=== PATIENT | male | born 1960 | race American Indian/Alaskan Native ===

== ENCOUNTER 2017-01-01 10:10 | Inpatient (IN) | payer MEDICAID, OTHER ==
[2017-01-01 10:28] VITALS: BMI 31.8
[2017-01-01] MEDS ORDERED: Metoprolol 1 mg/ml Inj IVP STA ×2 (10:41→10:42)
[2017-01-01] MEDS ORDERED: Sodium Chloride 0.9% 1,000 ML IV STA (10:44)
--- NOTE | 2017-01-01 11:01 | ED PDOC ---
HPI: Abdomen Time Seen by Provider: 01/01/17 10:32 Chief Complaint (Nursing): Abdominal Pain Chief Complaint (Provider): Abdominal pain, diffuse; vomiting, chest pain History Per: Patient History/Exam Limitations: no limitations Onset/Duration Of Symptoms: Hrs Outside of [place] travel?: No Current Symptoms Are (Timing): Still Present Context: Food Location Of Pain/Discomfort: Diffuse Quality Of Discomfort: Cramping Associated Symptoms: Nausea, Vomiting, Loss Of Appetite, Chest Pain. denies: Fever, Chills, Back Pain, Constipation, Urinary Symptoms Exacerbating Factors: None Alleviating Factors: None Last Bowel Movement: Today Additional Complaint(s): Pt reports chronic nausea and takes reglan at home. Pt states today when he woke up he felt diffuse abdominal pain. Pt states the pain radiates to the chest and feels like he had food stuck. Pt states he also was unable to take his BP medications today. He takes a BB. Past Medical History Reviewed: Historical Data, Nursing Documentation, Vital Signs Vital Signs: Last Vital Signs Temp 98.9 F 01/01/17 14:42 Pulse 87 01/01/17 14:42 Resp 18 01/01/17 14:42 BP 159/95 H 01/01/17 16:13 Pulse Ox 99 01/01/17 11:01 - Medical History PMH: Anemia, Bipolar Disorder, HTN, Hypercholesterolemia, Sleep Apnea (POSITIVE SLEEP STUDY, NO C PAP GIVEN), TIA (AUGUST 2014) Denies: Chronic Kidney Disease - Surgical History Surgical History: Cholecystectomy (2008), Endoscopy - Family History Family History: States: Unknown Family Hx - Living Arrangements Living Arrangements: With Family - Social History Current smoker - smoking cessation education provided: No Alcohol: None Drugs: Denies - Immunization History Hx Influenza Vaccination: Yes - Home Medications Home Medications: Ambulatory Orders Medication Instructions Recorded Aspirin [Aspirin EC] 81 mg PO DAILY 06/18/14 Vitamin B Complex & Vitamin C 1 tab PO DAILY 06/18/14 [Strovite] Atorvastatin [Lipitor] 80 mg PO HS 09/02/15 Pyridoxine [Vitamin B6 50 mg Tab] 50 mg PO DAILY 09/02/15 Metoclopramide [Reglan] 1 tab PO TIDAC PRN #21 tab 04/04/16 Gabapentin [Neurontin] 300 mg PO DAILY 01/01/17 Insulin Detemir [Levemir] 24 units SC HS 01/01/17 Insulin Human Regular [HumuLIN R] 8 units SC TID 01/01/17 - Allergies Allergies/Adverse Reactions: Allergies Allergy/AdvReac Type Severity Reaction Status Date / Time No Known Allergies Allergy Verified 09/05/15 04:43 Review of Systems ROS Statement: Except As Marked, All Systems Reviewed And Found Negative Constitutional: Negative for: Fever, Chills Cardiovascular: Positive for: Chest Pain. Negative for: Palpitations Gastrointestinal: Positive for: Nausea, Vomiting, Abdominal Pain Physical Exam - Reviewed Nursing Documentation Reviewed: Yes Vital Signs Reviewed: Yes - Physical Exam Appears: Positive for: Well, Non-toxic, No Acute Distress Head Exam: Positive for: ATRAUMATIC, NORMAL INSPECTION, NORMOCEPHALIC Skin: Positive for: Normal Color, Warm, DRY Eye Exam: Positive for: Normal appearance ENT: Positive for: Normal ENT Inspection Neck: Positive for: Normal, Painless ROM Cardiovascular/Chest: Positive for: Regular Rate, Rhythm Respiratory: Positive for: CNT, Normal Breath Sounds Gastrointestinal/Abdominal: Positive for: Bowel Sounds, Soft, Tenderness (Mild, diffuse ). Negative for: Normal Exam Back: Positive for: Normal Inspection Extremity: Positive for: Normal ROM Neurologic/Psych: Positive for: Alert, Oriented - Laboratory Results Result Diagrams: 01/01/17 11:30 01/01/17 11:30 - ECG O2 Sat by Pulse Oximetry: 99 Medical Decision Making Medical Decision Making: Discussed with Dr. Gore. Disposition - Clinical Impression Clinical Impression: Acute on chronic renal failure, Chest pain - Patient ED Disposition Is Patient to be Admitted: Yes - Disposition Disposition Time: 18:25 Condition: GOOD
[2017-01-01 11:56] LABS: BASO # 0.1 K/uL (0.0-0.2); BASO % 1.8 % (0.0-2.0); EOS # 0.2 K/uL (0.0-0.7); EOS % 2.2 % (0.0-4.0); HEMATOCRIT 24.9 % (35.0-51.0); LYMPH # 0.9 K/uL (1.0-4.3); LYMPH % 12.6 % (20.0-40.0); MEAN CELL VOLUME 76.4 fl (80.0-94.0); MEAN CORPUSCULAR HEMOGLOBIN 25.1 pg (27.0-31.0); MEAN CORPUSCULAR HGB CONC 32.9 g/dL (33.0-37.0); MEAN PLATELET VOLUME 7.6 fl (7.2-11.7); MONO # 0.5 K/uL (0.0-0.8); MONO % 7.3 % (0.0-10.0); NEUT # 5.6 K/uL (1.8-7.0); NEUT % 76.1 % (50.0-75.0); RED CELL DISTRIBUTION WIDTH 15.6 % (11.5-14.5); WHITE BLOOD COUNT 7.3 K/uL (4.8-10.8)
[2017-01-01 11:57] LABS: ALB/GLOB RATIO 1.1 (1.0-2.1); BILIRUBIN,TOTAL 1.1 mg/dl (0.2-1.3); CALCIUM 9.9 mg/dL (8.4-10.2); TOTAL PROTEIN 7.8 G/DL (6.3-8.2)
[2017-01-01 12:03] LABS: POTASSIUM 5.1 MMOL/L (3.6-5.0)
[2017-01-01 12:05] LABS: PARTIAL THROMBOPLASTIN TIME 29.4 Seconds (25.6-37.1)
[2017-01-01 12:08] LABS: TROPONIN I 0.037 ng/mL (0.00-0.120)
--- NOTE | 2017-01-01 12:08 | RAD ---
HISTORY: Chest pressure COMPARISON: No prior. FINDINGS: LUNGS: No active pulmonary disease. Slight elevation right hemidiaphragm possibly due to eventration. Suspect mild bilateral lower lobe atelectasis. PLEURA: No significant pleural effusion identified, no pneumothorax apparent. CARDIOVASCULAR: Heart size is upper limits of normal/ borderline enlarged. OSSEOUS STRUCTURES: No significant abnormalities. VISUALIZED UPPER ABDOMEN: Normal. OTHER FINDINGS: None. IMPRESSION: No active disease.
[2017-01-01 12:30] LABS: RBC URINE 2 /hpf (0-3); URINE BILIRUBIN NEGATIVE (NEGATIVE); URINE BLOOD NEGATIVE (NEGATIVE); URINE COLOR STRAW (YELLOW); URINE GLUCOSE (UA) >=500 mg/dL (Normal); URINE KETONE NEGATIVE (NEGATIVE); URINE LEUKOCYTE ESTERASE NEG Leu/uL (Negative); URINE PROTEIN >=500 mg/dL (NEGATIVE); URINE UROBILINOGEN 0.2-1.0 mg/dL (0.2-1.0)
[2017-01-01] MEDS ORDERED: Labetalol 5 mg/ml Inj 20ML IVP STA (12:38)
--- NOTE | 2017-01-01 16:08 | CT ---
PROCEDURE: CT chest abdomen pelvis dated 01/01/2017 HISTORY: Chest abdominal pain, hypertension COMPARISON: Though correlation made with concurrent chest radiograph obtained earlier same day TECHNIQUE: Radiation dose: Total exam DLP = 1457.68 mGy-cm. This CT exam was performed using one or more of the following dose reduction techniques: Automated exposure control, adjustment of the mA and/or kV according to patient size, and/or use of iterative reconstruction technique. FINDINGS: CT CHEST WITHOUT CONTRAST: LUNGS: Minor linear atelectasis/ scarring changes seen both lung bases, right greater than left. All There is also mild linear scarring in the left upper lobe. . There also appears to be some minor passive atelectasis both posterior lower lung zones. No obvious parenchymal masses or nodules. MEDIASTINUM: Heart size is upper limits of normal/ borderline enlarged. Questionable tiny the/trace pericardial effusion versus pericardial thickening. Ascending thoracic aorta measures approximately 3.56 cm and descending thoracic aorta measures approximately 2.47 cm. Pulmonary trunk measures approximately 3.4 cm. Central airways are midline and patent. LYMPH NODES: Multiple small to mildly enlarged mediastinal lymph nodes are present of nonspecific. Evaluation for hilar adenopathy is limited due to the lack of circulating intravenous contrast material. PLEURA: No evidence of pleural effusion or pneumothorax. BONES: Minor multilevel degenerative spondylosis of the thoracic spine. OTHER FINDINGS: None. CT ABDOMEN AND PELVIS: LIVER: Liver exhibits normal size measuring approximately 17 cm in CC dimension. No obvious hepatic mass collection or calcification. GALLBLADDER AND BILE DUCTS: Post cholecystectomy changes. PANCREAS: The pancreas is slightly atrophic and fatty replaced. No obvious pancreatic mass collection or calcification seen on this noncontrast study. SPLEEN: Spleen is upper limits of normal measuring 12 cm in AP dimension. No splenic mass collection or calcification. ADRENALS: No adrenal lesions. . KIDNEYS AND URETERS: Kidneys demonstrate relatively symmetric size. No evidence of nephrolithiasis. No obvious renal mass or collection. There is mild columnization of the proximal ureters. VASCULATURE: No evidence of abdominal aortic or iliac artery aneurysm. BOWEL: Evaluation of the bowel is limited due to the lack of oral contrast material. There is a small hiatal hernia. . Stomach is incompletely distended which presumably accounts for thick-walled appearance. Rule out gastritis. Visualized loops of small bowel exhibit normal contour and caliber. No evidence of acute mechanical small bowel obstruction. APPENDIX: Appendix of best seen on axial image number [id number]. There is a punctate CT density within the lumen of the appendix which could represent tiny at calcification. Appendix measures up to approximately 6 mm in greatest diameter. No periappendiceal inflammatory changes. Stool and air seen throughout the large bowel. There are a few scattered colonic diverticula along the sigmoid and distal descending colon. No definitive evidence of acute diverticulitis. No abnormal mural wall thickening. PERITONEUM: Unremarkable. No free fluid. No free air. Containing umbilical hernia. Small fat LYMPH NODES: Unremarkable. No enlarged lymph nodes. BLADDER: Urinary bladder is incompletely distended which may in part account for thick-walled appearance. Muscular hypertrophy may contribute. Possibility of a cystitis or other intrinsic/invasive wall lesion should be excluded. Urologic consultation may be prudent for further evaluation. REPRODUCTIVE: Prostate gland measures approximately 3.4 cm in transverse dimension. BONES: Minor multilevel degenerative spondylosis of the lumbar spine. OTHER FINDINGS: Minimal changes of bilateral gynecomastia IMPRESSION: Multiple small to mildly enlarged mediastinal lymph nodes nonspecific. Clinical correlation recommended. Minor bilateral linear scarring changes as described above. No infiltrate effusion or pneumothorax. Spleen appears upper limits of normal in size. Status post cholecystectomy. Scattered colonic diverticula without radiographic evidence of acute diverticulitis. Small hiatal hernia. Mild columnization both ureters. Wall thickening of the urinary bladder in part due to underdistention and mild probable muscular hypertrophy however cystitis or other intrinsic/invasive wall lesion should be excluded. Consider follow-up urologic consultation.
[2017-01-01] MEDS ORDERED: Insulin Regular 100 units/ml IV STA (18:49)
[2017-01-01] MEDS ORDERED: Sodium Chloride 0.45% 1,000 ML IV SCH (22:00)
[2017-01-01] MEDS: Insulin Regular 100 units/ml SC SCH (22:28)
[2017-01-01] MEDS: Insulin Detemir 100 Units/ml Inj SC SCH (22:52)
[2017-01-02] MEDS: Insulin Regular 100 units/ml SC SCH ×4 (06:15→22:53)
[2017-01-02] MEDS ORDERED: Insulin Regular 100 units/ml SC SCH (09:00)
[2017-01-02 09:22] LABS: HEMATOCRIT 28.2 % (35.0-51.0); MEAN CELL VOLUME 76.3 fl (80.0-94.0); MEAN CORPUSCULAR HEMOGLOBIN 24.8 pg (27.0-31.0); MEAN CORPUSCULAR HGB CONC 32.5 g/dL (33.0-37.0); WHITE BLOOD COUNT 7.5 K/uL (4.8-10.8)
[2017-01-02 09:46] LABS: CALCIUM 9.6 mg/dL (8.4-10.2); POTASSIUM 4.2 MMOL/L (3.6-5.0)
[2017-01-02 09:57] LABS: TROPONIN I 0.024 ng/mL (0.00-0.120)
[2017-01-02] MEDS: Multivitamin With Minerals Tab PO SCH (10:00)
[2017-01-02] MEDS: Enoxaparin 30 mg Syringe SC SCH (10:00)
--- NOTE | 2017-01-02 17:14 | HP ---
HISTORY OF PRESENT ILLNESS: The patient is a 56-year-old male who was admitted via the emergency room because of abdominal and chest pains on the day of admission. He indicated that he had vomited several times the day before and atypical chest pains radiating to the left arm. He also felt like food was stuck at the back of the throat. He has had similar episodes in the past and has been under the care of Dr. Zack Fishman and has been admitted to [facility] via the ER prior to this presentation. PAST MEDICAL HISTORY: Bipolar disorder, severe anemia, hypertension, hyperlipidemia, sleep apnea syndrome, severe gastritis with chronic nausea, diabetes mellitus, and renal failure. FAMILY HISTORY: Non-revealing. SOCIAL HISTORY: He does not smoke or drink and lives at home with his daughter and . REVIEW OF SYSTEMS: Remarkable for chronic recurrent nausea. PHYSICAL EXAMINATION: GENERAL: The patient is alert and oriented. He is obese. VITAL SIGNS: Blood pressure 159/95, pulse of 87, respiratory rate 18. He is afebrile. O2 sat 99% on room air. SKIN: Shows slight turgor. HEENT: Pupils equal, reactive to light and accommodation. JVP is flat. Mouth shows fair hygiene. LUNGS: Clear. HEART: Regular. No murmurs, rub or gallops. No chest wall tenderness. ABDOMEN: Soft with midepigastric tenderness. No organomegaly appreciated. He has normal active bowel sounds. GENITALIA: Normal. RECTAL: Deferred. EXTREMITIES: Show no edema or cyanosis. CENTRAL NERVOUS SYSTEM: Grossly intact. LABORATORY DATA: Remarkable for sodium of 137, potassium of 5.1, BUN of 40, creatinine of 4.3 increased from creatinine done on several months ago at [facility], which was 2.7. Serum glucose 240, troponin 0.037, AST 50, ALT 35. WBC 7.5, hemoglobin 9.2, platelet count 279,000. Urinalysis greater than 500 protein, greater than 500 glucose, otherwise unremarkable. PT 11.5, INR 1.1. CAT scan of abdomen and pelvis is remarkable for multiple small, mildly enlarged lymph nodes, which are nonspecific. Bilateral linear scarring, changes described. Spleen normal status post cholecystectomy. Scattered colonic diverticula. Chest x-ray, no acute cardiopulmonary pathology. EKG official report is pending. IMPRESSION: Abdominal and chest pains, this could be due to patient's history of severe gastritis, but one has to rule out acute coronary artery syndrome, renal failure acute on chronic, diabetes mellitus type 2 with hyperglycemia, poorly controlled; hypertension, poorly controlled. PLAN: Intravenous hydration. Nephrology and cardiology evaluation. We will give H2 blockers for gastritis. Monitor blood sugar closely. Further therapy will depend on findings. Zac Gore MD
--- NOTE | 2017-01-02 17:32 | CP.PCM.CON ---
History of Present Illness - History of Present Illness History of Present Illness: PT W CC OF CP AFTER MEALS. SAYS THAT FOR 4 DAYS HE HAS HAD CHEST DISCOMFORT OVER LEFT CHEST POST MEALS. LASTS 15 MIN, RESOLVES ON OWN. FEELS LIKE PRESSURE. ASSOCIATED W DYSPNEA. HE HAS HAD INCREASED ORTHOPNEA FOR SEVERAL WEEKS WELL. PT DENIES PRIOR EPISODES IN PAST. PT HAS MULTIPLE RISK FACTORS DM, HTN, DYSLIPIDEMIA, AND FAM HX OF CAD. PT STATES HE HAD A CARDIAC CATH IN PAST WHEN DIAGNOSED WITH CHF (ETIOLOGY UNKNOWN). PTS SYMPTOMS ARE NOT EXERTIONAL. UPON ADMISSION HE WAS NOTED TO HAVE WORSENING RENAL FUNCTION. CURRENTLY PT APPEARS COMFORTABLE. Review of Systems - Constitutional Constitutional: absent: As Per HPI, Anorexia, Chills, Daytime Sleepiness, Excessive Sweating, Fatigue, Fever, Frequent Falls, Headache, Increased Appetite , Lethargy, Malaise, Night Sweats, Snoring, Sleep Apnea, Weight Gain, Weight Loss, Weakness, Other - EENT Eyes: absent: As Per HPI, Blind Spots, Blurred Vision, Change in Vision, Decreased Night Vision, Diplopia, Discharge, Dry Eye, Exophthalmos, Floaters, Irritation, Itchy Eyes, Loss of Peripheral Vision, Pain, Photophobia, Requires Corrective Lenses, Sees Flashes, Spots in Vision, Tunnel Vision, Other Visual Disturbances, Loss of Vision, Other Ears: absent: As Per HPI, Decreased Hearing, Ear Discharge, Ear Pain, Tinnitus, Abnormal Hearing, Disequilibrium, Dizziness, Other Nose/Mouth/Throat: absent: As Per HPI, Epistaxis, Nasal Congestion, Nasal Discharge, Nasal Obstruction, Nasal Trauma, Nose Pain, Post Nasal Drip, Sinus Pain, Sinus Pressure, Bleeding Gums, Change in Voice, Dental Pain, Dry Mouth, Dysphagia, Halitosis, Hoarsness, Lip Swelling, Mouth Lesions, Mouth Pain, Odynophagia, Sore Throat, Throat Swelling, Tongue Swelling, Facial Pain, Neck Pain, Neck Mass, Other - Cardiovascular Cardiovascular: As Per HPI, Chest Pain, Chest Pain at Rest, Leg Edema, Orthopnea. absent: Acrocyanosis, Chest Pain with Activity, Claudication, Diaphoresis, Dyspnea, Dyspnea on Exertion, Edema, Irregular Heart Rhythm, Pain Radiating to Arm/Neck/Jaw, Leg Ulcers, Lightheadedness, Palpitations, Paroxysmal Nocturnal Dyspnea, Pedal Edema, Radiating Pain, Rapid Heart Rate, Slow Heart Rate, Syncope, Other - Respiratory Respiratory: absent: As Per HPI, Cough, Dyspnea, Hemoptysis, Dyspnea on Exertion , Wheezing, Snoring, Stridor, Pain on Inspiration, Chest Congestion, Excessive Mucous Production, Change in Mucous Color, Pain with Coughing, Other - Gastrointestinal Gastrointestinal: Abdominal Pain, Bloating. absent: As Per HPI, Belching, Change in Bowel Habits, Change in Stool Character, Coffee Ground Emesis, Constipation, Cramping, Diarrhea, Dyspepsia, Dysphagia, Early Satiety, Excessive Flatus, Fecal Incontinence, Heartburn, Hematemesis, Hematochezia, Loose Stools, Melena, Nausea, Odynophagia, Temesmus, Vomiting, Other - Genitourinary Genitourinary: absent: As Per HPI, Change in Urinary Stream, Difficulty Urinating, Dysuria, Flank Pain, Hematuria, Pyuria, Nocturia, Urinary Incontinence, Urinary Frequency, Urinary Hesitance, Urinary Urgency, Voiding Freq/Small Amts, Freq UTI, Hx Renal/Bladder Calculi, Hx /Renal Surgery, Bladder Distension, Other - Musculoskeletal Musculoskeletal: absent: As Per HPI, Abnormal Gait, Arthralgias, Atrophy, Back Pain, Deformity, Joint Swelling, Limited Range of Motion, Loss of Height, Muscle Cramps, Muscle Weakness, Myalgias, Neck Pain, Numbness, Radiating Pain into Limb, Stiffness, Tingling, Other - Integumentary Integumentary: absent: As Per HPI, Acne, Alopecia, Bleeding Lesions, Change in Hair, Change in Nails, Change in Pigmentation, Changing Lesions, Dry Skin, Erythema, Furuncle, Hirsutism, Lesions, New Lesions, Non-Healing Lesions, Photosensitivity, Pruritus, Rash, Skin Pain, Skin Ulcer, Sores, Striae, Swelling , Unusual Bruising, Wounds, Jaundice, Other - Neurological Neurological: absent: As Per HPI, Abnormal Gait, Abnormal Hearing, Abnormal Movements, Abnormal Speech, Behavioral Changes, Burning Sensations, Confusion, Convulsions, Disequilibrium, Dizziness, Numbness, Focal Weakness, Frequent Falls , Headaches, Lack of Coordination, Loss of Vision, Memory Loss, Paresthesias, Radicular Pain, Restless Legs, Sensory Deficit, Syncope, Tingling, Tremor, Vertigo, Weakness, Other Visual Disturbances, Other - Psychiatric Psychiatric: absent: As Per HPI, Abnormal Sleep Pattern, Anhedonia, Anxiety, Auditory Hallucinations, Behavioral Changes, Change in Appetite, Change in Libido, Confusion, Depression, Difficulty Concentrating, Hallucinations, Homicidal Ideation, Hopelessness, Irritability, Memory Loss, Mood Swings, Panic Attacks, Paranoia, Suicidal Ideation, Visual Hallucinations, Tactile Hallucinations, Other - Endocrine Endocrine: absent: As Per HPI, Change in Body Appearance, Change in Libido, Cold Intolorance, Deepening of Voice, Excessive Sweating, Fatigue, Flushing, Heat Intolorance, Increase in Ring/Shoe/Hat Size, Palpitations, Polydipsia, Polyphagia, Polyuria, Other - Hematologic/Lymphatic Hematologic: absent: As Per HPI, Easy Bleeding, Easy Bruising, Lymphadenopathy, Other Past Patient History - Past Medical History & Family History Past Medical History?: Yes - Past Social History Smoking Status: Never Smoked Chewing Tobacco Use: No Cigar Use: No Alcohol: None Drugs: Denies Domestic Violence: Negative - CARDIAC Hx Cardiac Disorders: Yes Hx Hypercholesterolemia: Yes Hx Hypertension: Yes - PULMONARY Hx Respiratory Disorders: Yes Hx Sleep Apnea: Yes (POSITIVE SLEEP STUDY, NO C PAP GIVEN) - NEUROLOGICAL Hx Neurological Disorder: Yes Hx Transient Ischemic Attacks (TIA): Yes (AUGUST 2014) - HEENT Hx HEENT Problems: No - RENAL Hx Chronic Kidney Disease: No - ENDOCRINE/METABOLIC Hx Endocrine Disorders: Yes Hx Diabetes Mellitus Type 1: Yes - HEMATOLOGICAL/ONCOLOGICAL Hx AIDS: No Hx Anemia: Yes Hx Blood Transfusions: No Hx Human Immunodeficiency Virus (HIV): No - INTEGUMENTARY Hx Dermatological Problems: No - MUSCULOSKELETAL/RHEUMATOLOGICAL Hx Musculoskeletal Disorders: Yes Hx Falls: Yes Hx Herniated Disk: Yes (2- CERVICAL) Hx Osteoarthritis: Yes (KNEES) - GASTROINTESTINAL Hx Gastrointestinal Disorders: Yes Other/Comment: EGD done 09/02/2015 - gastric ulcer - GENITOURINARY/GYNECOLOGICAL Hx Genitourinary Disorders: No - PSYCHIATRIC Hx Bipolar Disorder: Yes Hx Substance Use: No - SURGICAL HISTORY Hx Surgeries: Yes Hx Cholecystectomy: Yes (2008) - ANESTHESIA Hx Anesthesia: Yes Hx Anesthesia Reactions: Yes (VOMITING) Meds Allergies/Adverse Reactions: Allergies Allergy/AdvReac Type Severity Reaction Status Date / Time No Known Allergies Allergy Verified 09/05/15 04:43 - Medications Medications: Current Medications Acetaminophen (Tylenol 325mg Tab) 650 mg PO Q4 PRN PRN Reason: Headache Amlodipine Besylate (Norvasc) 5 mg PO DAILY [facility] Last Admin: 01/02/17 09:50 Dose: Not Given Aspirin (Ecotrin) 81 mg PO DAILY [facility] Last Admin: 01/02/17 09:57 Dose: 81 mg Atorvastatin Calcium (Lipitor) 80 mg PO HS [facility] Last Admin: 01/01/17 22:52 Dose: 80 mg Carvedilol (Coreg) 25 mg PO Q12 [facility] Last Admin: 01/02/17 11:11 Dose: 25 mg Clonidine HCl (Catapres-Tts2 0.2 Mg/24 Hr) 1 patch TD Q7D [facility] Enoxaparin Sodium (Lovenox) 30 mg SC DAILY [facility] PRN Reason: Protocol Last Admin: 01/02/17 10:00 Dose: 30 mg Gabapentin (Neurontin) 300 mg PO DAILY [facility] Last Admin: 01/02/17 10:00 Dose: 300 mg Insulin Detemir (Levemir) 24 units SC [facility] Last Admin: 01/01/17 22:52 Dose: 24 units Insulin Human Regular (Humulin R) 0 units SC ACCU-CHECK [facility] PRN Reason: Protocol Last Admin: 01/02/17 17:17 Dose: 5 units Metoclopramide HCl (Reglan) 10 mg PO TIDAC PRN PRN Reason: Nausea/Vomiting Multivitamins/Minerals (Therapeutic-M Tab) 1 tab PO DAILY [facility] Last Admin: 01/02/17 10:00 Dose: 1 tab Pantoprazole Sodium (Protonix Inj) 40 mg IVP DAILY [facility] Last Admin: 01/02/17 10:01 Dose: 40 mg Pyridoxine HCl (Vitamin B6 50 Mg Tab) 50 mg PO DAILY [facility] Last Admin: 01/02/17 10:00 Dose: 50 mg Zolpidem Tartrate (Ambien) 5 mg PO [facility] Last Admin: 01/01/17 22:38 Dose: 5 mg Physical Exam - Constitutional Appears: Non-toxic - Head Exam Head Exam: ATRAUMATIC, NORMAL INSPECTION, NORMOCEPHALIC - Eye Exam Eye Exam: EOMI, Normal appearance, PERRL. absent: Conjunctival injection, Nystagmus, Periorbital swelling, Periorbital tenderness, Scleral icterus Pupil Exam: NORMAL ACCOMODATION, PERRL. absent: Fixed, Irregular, Miosis, Mydriatic, Unequal - ENT Exam ENT Exam: Mucous Membranes Moist, Normal Exam. absent: Mucous Membranes Dry, Normal External Ear Exam, Normal Oropharynx, TM's Normal Bilaterally - Neck Exam Neck exam: Positive for: Normal Inspection. Negative for: Full Rom, Lymphadenopathy, Meningismus, Tenderness, Thyromegaly - Respiratory Exam Respiratory Exam: Clear to Auscultation Bilateral, NORMAL BREATHING PATTERN. absent: Accessory Muscle Use, Chest Wall Tenderness, Decreased Breath Sounds, Prolonged Expiratory Phase, Rales, Rhonchi, Wheezes, Respiratory Distress, Stridor - Cardiovascular Exam Cardiovascular Exam: REGULAR RHYTHM, +S1, +S2, Systolic Murmur. absent: Bradycardia, Tachycardia, Clicks, Diastolic murmur, Gallop, Irregular Rhythm, JVD, RRR, Rubs, +S4 - GI/Abdominal Exam GI & Abdominal Exam: Normal Bowel Sounds, Soft. absent: Bruit, Diminished Bowel Sounds, Distended, Firm, Guarding, Hernia, Hyperactive Bowel Sounds, Hypoactive Bowel Sounds, Mass, Organomegaly, Pulsatile Mass, Rebound, Rigid, Tenderness - Rectal Exam Rectal Exam: Deferred - Extremities Exam Extremities exam: Positive for: normal inspection, pedal edema. Negative for: calf tenderness, full ROM, joint swelling, normal capillary refill, tenderness, pedal pulses present - Back Exam Back exam: NORMAL INSPECTION. absent: CVA tenderness (L), CVA tenderness (R), FULL ROM, muscle spasm, paraspinal tenderness, rash noted, tenderness, vertebral tenderness - Neurological Exam Neurological exam: Alert, CN II-XII Intact, Oriented x3, Reflexes Normal - Psychiatric Exam Psychiatric exam: Normal Affect, Normal Mood - Skin Skin Exam: Dry, Intact, Normal Color, Warm Results - Vital Signs Recent Vital Signs: Last Vital Signs Temp 98.1 F 01/02/17 16:00 Pulse 84 01/02/17 16:00 Resp 18 01/02/17 16:00 BP 180/107 H 01/02/17 16:00 Pulse Ox 97 01/02/17 16:00 - Labs Result Diagrams: 01/02/17 08:30 01/02/17 08:30 Labs: Laboratory Results - last 24 hr 01/02/17 01/02/17 11:09 17:10 POC Glucose (mg/dL) 321 H 348 H Assessment & Plan (1) Dyslipidemia Status: Acute (2) Acute on chronic renal failure Status: Acute (3) Chest pain Status: Acute (4) Abdominal pain Status: Acute (5) Diabetes mellitus, insulin dependent (IDDM), uncontrolled Status: Acute (6) Hypertension Status: Chronic - Assessment and Plan (Free Text) Plan: R/O CA CHECK ECHO MONITOR LYTES AND RENAL FUNCTION WILL TITRATE MEDS FOR BP CONTROL CONSIDER DIURETIC THERAPY FOR BP AWAIT RENAL WORK UP PTS CP IS ATYPICAL, WILL CONSIDER STRESS TESTING ONCE RENAL FAILURE RESOLVES 90 MIN TOTAL CARE TIME.
--- NOTE | 2017-01-02 18:09 | CP.PCM.CON ---
History of Present Illness - History of Present Illness History of Present Illness: pt is een and examined, full consult is dictated #[id number] Past Patient History - Past Medical History & Family History Past Medical History?: Yes - Past Social History Smoking Status: Never Smoked - CARDIAC Hx Hypercholesterolemia: Yes Hx Hypertension: Yes - PULMONARY Hx Sleep Apnea: Yes (POSITIVE SLEEP STUDY, NO C PAP GIVEN) - NEUROLOGICAL Hx Transient Ischemic Attacks (TIA): Yes (AUGUST 2014) - HEENT Hx HEENT Problems: No - RENAL Hx Chronic Kidney Disease: No - ENDOCRINE/METABOLIC Hx Endocrine Disorders: Yes Hx Diabetes Mellitus Type 1: Yes - HEMATOLOGICAL/ONCOLOGICAL Hx AIDS: No Hx Anemia: Yes Hx Blood Transfusions: No Hx Human Immunodeficiency Virus (HIV): No - INTEGUMENTARY Hx Dermatological Problems: No - MUSCULOSKELETAL/RHEUMATOLOGICAL Hx Musculoskeletal Disorders: Yes Hx Falls: Yes Hx Herniated Disk: Yes (2- CERVICAL) Hx Osteoarthritis: Yes (KNEES) - GASTROINTESTINAL Hx Gastrointestinal Disorders: Yes Other/Comment: EGD done 09/02/2015 - gastric ulcer - GENITOURINARY/GYNECOLOGICAL Hx Genitourinary Disorders: No - PSYCHIATRIC Hx Bipolar Disorder: Yes Hx Substance Use: No - SURGICAL HISTORY Hx Surgeries: Yes Hx Cholecystectomy: Yes (2008) - ANESTHESIA Hx Anesthesia: Yes Hx Anesthesia Reactions: Yes (VOMITING) Meds Allergies/Adverse Reactions: Allergies Allergy/AdvReac Type Severity Reaction Status Date / Time No Known Allergies Allergy Verified 09/05/15 04:43 - Medications Medications: Current Medications Acetaminophen (Tylenol 325mg Tab) 650 mg PO Q4 PRN PRN Reason: Headache Last Admin: 01/02/17 17:33 Dose: 650 mg Amlodipine Besylate (Norvasc) 5 mg PO DAILY [facility] Last Admin: 01/02/17 09:50 Dose: Not Given Aspirin (Ecotrin) 81 mg PO DAILY [facility] Last Admin: 01/02/17 09:57 Dose: 81 mg Atorvastatin Calcium (Lipitor) 80 mg PO HS [facility] Last Admin: 01/01/17 22:52 Dose: 80 mg Carvedilol (Coreg) 25 mg PO Q12 [facility] Last Admin: 01/02/17 11:11 Dose: 25 mg Clonidine HCl (Catapres-Tts2 0.2 Mg/24 Hr) 1 patch TD Q7D [facility] Last Admin: 01/02/17 18:01 Dose: Not Given Enoxaparin Sodium (Lovenox) 30 mg SC DAILY [facility] PRN Reason: Protocol Last Admin: 01/02/17 10:00 Dose: 30 mg Gabapentin (Neurontin) 300 mg PO DAILY [facility] Last Admin: 01/02/17 10:00 Dose: 300 mg Insulin Detemir (Levemir) 24 units SC [facility] Last Admin: 01/01/17 22:52 Dose: 24 units Insulin Human Regular (Humulin R) 0 units SC ACCU-CHECK [facility] PRN Reason: Protocol Last Admin: 01/02/17 17:17 Dose: 5 units Metoclopramide HCl (Reglan) 10 mg PO TIDAC PRN PRN Reason: Nausea/Vomiting Multivitamins/Minerals (Therapeutic-M Tab) 1 tab PO DAILY [facility] Last Admin: 01/02/17 10:00 Dose: 1 tab Pantoprazole Sodium (Protonix Inj) 40 mg IVP DAILY [facility] Last Admin: 01/02/17 10:01 Dose: 40 mg Pyridoxine HCl (Vitamin B6 50 Mg Tab) 50 mg PO DAILY [facility] Last Admin: 01/02/17 10:00 Dose: 50 mg Zolpidem Tartrate (Ambien) 5 mg PO [facility] Last Admin: 01/01/17 22:38 Dose: 5 mg Results - Vital Signs Recent Vital Signs: Last Vital Signs Temp 98.1 F 01/02/17 16:00 Pulse 84 01/02/17 17:33 Resp 18 01/02/17 16:00 BP 180/107 H 01/02/17 17:33 Pulse Ox 97 01/02/17 16:00 - Labs Result Diagrams: 01/02/17 08:30 01/02/17 08:30 Labs: Laboratory Results - last 24 hr 01/02/17 01/02/17 11:09 17:10 POC Glucose (mg/dL) 321 H 348 H
[2017-01-02] MEDS: Insulin Detemir 100 Units/ml Inj SC SCH (22:54)
--- NOTE | 2017-01-03 07:04 | CON ---
RENAL CONSULTATION LOCATION: Room 406, bed 2. REQUESTING PHYSICIAN: Dr. Zac Gore. REASON FOR RENAL CONSULTATION: CKD IV, proteinuria, for further evaluation, uncontrolled hypertension. HISTORY OF PRESENT ILLNESS: Mr. Troncoso is a 56-year-old obese middle-aged, male with a past medical history significant for hypertension for more than 20 years and diabetes for about 16-17 years and diabetic retinopathy, status post laser treatment to the left eye, and nephrotic-range proteinuria, multiple admissions to the [facility] in the last 3-4 months with accelerated hypertension, hyperglycemia, nausea, and vomiting. The last admission was on 12/23/2016 and discharged home on 12/17/2016 from [facility], and now, the patient was admitted through the emergency room with chief complaints of feeling nausea, vomiting, unable to hold his blood pressure medications, and also headache and chest pain on admission. Per the patient, his symptoms did not improve [facility]. The patient denies any abdominal pain and denies any diarrhea, denies any fever or cough, denies any shortness of breath. The patient does complain of swelling in both legs for the last few days. The patient is noncompliant with medications. PAST MEDICAL HISTORY: Signification for hypertension for more than 20 years and diabetes for 16-17 years, diabetic retinopathy and is status post laser treatment, CKD IV, proteinuria, hyperlipidemia, and questionable diabetic gastroparesis. PAST SURGICAL HISTORY: Status post laser treatment for the left eye. ALLERGIES: NO KNOWN DRUG ALLERGIES. MEDICATIONS: [facility] are Seroquel 50 mg p.o. at bedtime, amlodipine 10 mg daily, aspirin 81 mg daily, Calcitrol 0.25 mcg one capsule p.o. daily, Coreg 25 mg p.o. q.12 hours, Thorazine 25 mg 3 times a day, cilostazol 100 mg 2 times a day, Colace with Senna 50 mg and 8.6 oral tablet 2 tablets 2 times a day as needed, ferrous sulfate 325 mg b.i.d., gabapentin 300 mg 1 capsule t.i.d., hydralazine 100 mg p.o. q.12 hours, hydrochlorothiazide 12.5 mg daily, insulin Novolog 8 units 3 times a day before meals, Levemir 26 units subcutaneously at bedtime and also 24 units subcutaneously daily, Reglan 10 mg 3 times a day, multivitamin 1 capsule p.o. daily, and Protonix 40 mg daily. His medications in the hospital include Ambien 5 mg at bedtime, clonidine 0.2 mg patch daily, Coreg 25 mg p.o. q.12 hours, aspirin 81 mg daily, Accu-Chek for coverage and Levemir 25 units subcutaneously at bedtime, Lipitor 80 mg p.o. at bedtime, Lovenox 30 mg subcutaneously daily, gabapentin 300 mg p.o. daily, amlodipine 5 mg p.o. daily, Protonix 40 mg daily, Reglan 10 mg t.i.d., multivitamin, acetaminophen, and B6 pyridoxine 50 mg p.o. daily. SOCIAL HISTORY: He denies any smoking, alcohol, or drugs. PERSONAL HISTORY: He is and he has 2 children. FAMILY HISTORY: Not significant. REVIEW OF SYSTEMS: Significant for headache, chest pain, bilateral leg swelling, nausea, vomiting, and unable to hold any p.o. since he was discharged from the [facility] on 12/27/2016. PHYSICAL EXAMINATION: As follows: GENERAL: Mr. Troncoso is a 56-year-old middle-aged patient, well built, well nourished, not in acute distress. VITAL SIGNS: Blood pressure 180/107, pulse 84, respirations 18, temperature 98.1, height 5 feet 9 inches, and weight is 216 pounds. HEENT: Pupils are normal and reactive to light and accommodation. Conjunctivae pink. Sclerae anicteric. Tongue is moist. Trachea is midline. LUNGS: Symmetric on both sides. Bilateral breath sounds present and clear on auscultation. CARDIOVASCULAR: [place] at the fifth intercostal space, midclavicular line. S1 and S2 audible. No murmur, no gallop. ABDOMEN: Normal in appearance, soft and tympanic. No guarding. No rigidity. No hepatosplenomegaly. [employer]: The patient is alert, awake, and oriented x3. Nonfocal neuro examination. Cranial nerves II through XII grossly intact. Sensory and motor system are within normal limits. EXTREMITIES: No cyanosis. No clubbing. The patient has 1+ edema in both lower extremities. LABORATORY DATA: His current laboratory data includes as follows: As of 01/02/2017, WBC is 7.5, hemoglobin 9.2, hematocrit is 28.2, platelets 279. Sodium 138, potassium 4.2, chloride 103, CO2 of 26, BUN 35, creatinine is 4, glucose is 321, calcium 9.6. Troponin 0.024. Triglycerides 341, cholesterol 356, LDL is 139, HDL is 48. His urinalysis as of 01/01/2017 is straw color and clear, pH 7, specific gravity of 1.008, protein more than 500, glucose more than 500, ketones negative, blood negative, nitrites negative, bilirubin negative, urobilinogen 0.2 to 1.0, leukocyte esterase is negative, rbc's 2. Chest x-ray as of 01/01/2017, no active disease. CT of the abdomen and pelvis, impression: Multiple small to mildly enlarged mediastinal lymph nodes, nonspecific, clinical correlation is recommended. Minor bilateral linear scarring changes and no infiltrative effusion or pneumothorax. Spleen appears upper limit of the normal size, status post cholecystectomy, scattered chronic diverticula without radiographic evidence of acute diverticulitis, small hiatal hernia, mild columnization of both ureters, wall thickening of the urinary bladder or due to under-distention and mild probable muscular hypertrophy; however, cystitis or other intrinsic or invasive wall lesions should be excluded and consider followup urologic consultation. IMPRESSION: In summary, Mr. Troncoso is a 56-year-old middle-aged male with a history of longstanding hypertension, diabetes, nephrotic range proteinuria, chronic kidney disease with baseline creatinine of about 4-4.5, diabetic retinopathy, status post laser treatment and also diabetic gastroparesis, who [facility], admitted with again nausea, vomiting, and uncontrolled hypertension. 1. Chronic kidney disease stage IV, mostly likely secondary to diabetic nephropathy. The patient had a complete workup in the [facility] in the past. All the serological workup was negative. 2. Uncontrolled hypertension, most likely secondary to noncompliance with medications. 3. Proteinuria secondary to diabetic nephropathy. 4. Diabetic gastroparesis. PLAN: Continue his current medications. Clonidine 1 patch TTS-2 may not be a good choice due to noncompliance with the medications. Continue Coreg 25 mg p.o. q.12 hours and I will increase the Norvasc to 10 mg daily and also will add Lasix 40 mg p.o. b.i.d. and titrate it as needed. Also, we will check PTH intact level and continue calcitriol and multivitamins. Check CBC, BMP, calcium, phosphorus, and PTH intact level in the a.m. We will follow with you. Thank you for allowing me to participate in your patient's care. Overall prognosis is guarded. Case discussed with Dr. Gore this morning. Savanna Cleveland MD
[2017-01-03 07:33] LABS: BLOOD UREA NITROGEN 35 mg/dl (9-20); CALCIUM 9.2 mg/dL (8.4-10.2); CARBON DIOXIDE 28 mmol/L (22-30); CHLORIDE 101 mmol/L (98-107); GFR AFRICAN-AMERICAN 18; GLUCOSE,RANDOM 231 mg/dL (75-110); PHOSPHOROUS 3.7 mg/dl (2.5-4.5); POTASSIUM 4.6 MMOL/L (3.6-5.0); SODIUM 135 mmol/l (132-148)
[2017-01-03] MEDS: Insulin Regular 100 units/ml SC SCH ×4 (07:35→22:00)
--- NOTE | 2017-01-03 10:19 | CP.PCM.PN ---
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-PT HAS BEEN ADMITTED SEVERAL TIMES AT [facility] FOR HYPERTENSIVE CRISIS AND NON-COMPLIANCE TO MEDS--BP HAS ALWAYS BEEN DIFFICULT TO CONTROL AND CREATININE HAS ALWAYS BEEN IN THE 4'S Objective - Vital Signs/Intake and Output Vital Signs (last 24 hours): Temp Pulse Resp BP Pulse Ox 98.5 F 71 18 166/95 H 99 01/03/17 08:00 01/03/17 08:00 01/03/17 08:00 01/03/17 08:00 01/03/17 08:00 - Medications Medications: Current Medications Acetaminophen (Tylenol 325mg Tab) 650 mg PO Q4 PRN PRN Reason: Headache Last Admin: 01/02/17 17:33 Dose: 650 mg Amlodipine Besylate (Norvasc) 10 mg PO DAILY [facility] Aspirin (Ecotrin) 81 mg PO DAILY [facility] Last Admin: 01/02/17 09:57 Dose: 81 mg Atorvastatin Calcium (Lipitor) 80 mg PO HS [facility] Last Admin: 01/02/17 21:47 Dose: 80 mg Carvedilol (Coreg) 25 mg PO Q12 [facility] Last Admin: 01/02/17 21:45 Dose: 25 mg Clonidine HCl (Catapres-Tts2 0.2 Mg/24 Hr) 1 patch TD Q7D [facility] Last Admin: 01/02/17 18:01 Dose: Not Given Enoxaparin Sodium (Lovenox) 30 mg SC DAILY [facility] PRN Reason: Protocol Last Admin: 01/02/17 10:00 Dose: 30 mg Furosemide (Lasix) 40 mg PO Q12 [facility] Last Admin: 01/02/17 21:47 Dose: 40 mg Gabapentin (Neurontin) 300 mg PO DAILY [facility] Last Admin: 01/02/17 10:00 Dose: 300 mg Insulin Detemir (Levemir) 24 units SC HS [facility] Last Admin: 01/02/17 22:54 Dose: 24 units Insulin Human Regular (Humulin R) 0 units SC ACCU-CHECK [facility] PRN Reason: Protocol Last Admin: 01/03/17 07:35 Dose: 3 units Losartan Potassium (Cozaar) 25 mg PO DAILY [facility] Metoclopramide HCl (Reglan) 10 mg PO TIDAC PRN PRN Reason: Nausea/Vomiting Multivitamins/Minerals (Therapeutic-M Tab) 1 tab PO DAILY [facility] Last Admin: 01/02/17 10:00 Dose: 1 tab Pantoprazole Sodium (Protonix Inj) 40 mg IVP DAILY [facility] Last Admin: 01/02/17 10:01 Dose: 40 mg Pyridoxine HCl (Vitamin B6 50 Mg Tab) 50 mg PO DAILY [facility] Last Admin: 01/02/17 10:00 Dose: 50 mg Zolpidem Tartrate (Ambien) 5 mg PO HS [facility] Last Admin: 01/02/17 22:53 Dose: 5 mg - Labs Labs: 01/03/17 06:00 PT 11.5 Seconds (9.8-13.1) 01/01/17 11:30 INR 1.1 (0.9-1.2) 01/01/17 11:30 APTT 29.4 Seconds (25.6-37.1) 01/01/17 11:30 - Constitutional Appears: Chronically Ill - Head Exam Head Exam: ATRAUMATIC, NORMAL INSPECTION, NORMOCEPHALIC - Eye Exam Eye Exam: EOMI, Normal appearance, PERRL Pupil Exam: NORMAL ACCOMODATION, PERRL - ENT Exam ENT Exam: Mucous Membranes Moist, Normal Exam - Neck Exam Neck Exam: Full ROM, Normal Inspection. absent: Lymphadenopathy - Respiratory Exam Respiratory Exam: Clear to Ausculation Bilateral, NORMAL BREATHING PATTERN - Cardiovascular Exam Cardiovascular Exam: REGULAR RHYTHM, +S1, +S2. absent: Murmur - GI/Abdominal Exam GI & Abdominal Exam: Soft, Normal Bowel Sounds. absent: Tenderness - Rectal Exam Rectal Exam: NORMAL INSPECTION - Extremities Exam Extremities Exam: Full ROM, Normal Capillary Refill, Normal Inspection. absent : Joint Swelling, Pedal Edema - Back Exam Back Exam: NORMAL INSPECTION - Neurological Exam Neurological Exam: Alert, Awake, CN II-XII Intact, Normal Gait, Oriented x3 - Psychiatric Exam Psychiatric exam: Normal Affect, Normal Mood - Skin Skin Exam: Dry, Intact, Normal Color, Warm Assessment and Plan - Assessment and Plan (Free Text) Assessment: CHEST PAIN UNCONTROLLED HTN CHRONIC RENAL FAILURE NON-COMPLIANCE DM WITH HYPERGLYCEMIA Plan: CONTINUE APPROPRIATE BP MONITORING AND NEPHROLOGY/CARDIAC WORKUP
[2017-01-03] MEDS: Enoxaparin 30 mg Syringe SC SCH (10:43)
[2017-01-03] MEDS: Multivitamin With Minerals Tab PO SCH (10:44)
--- NOTE | 2017-01-03 13:16 | CP.PCM.PN ---
Subjective - Date & Time of Evaluation Date of Evaluation: 01/03/17 Time of Evaluation: 13:15 - Subjective Subjective: pt is seen and examined, follow up consult is dictated #[id number] Objective - Vital Signs/Intake and Output Vital Signs (last 24 hours): Temp Pulse Resp BP Pulse Ox 99.1 F 83 18 158/71 H 98 01/03/17 13:00 01/03/17 13:01 01/03/17 13:00 01/03/17 13:01 01/03/17 13:00 - Medications Medications: Current Medications Acetaminophen (Tylenol 325mg Tab) 650 mg PO Q4 PRN PRN Reason: Headache Last Admin: 01/02/17 17:33 Dose: 650 mg Amlodipine Besylate (Norvasc) 10 mg PO DAILY [facility] Last Admin: 01/03/17 13:01 Dose: 10 mg Aspirin (Ecotrin) 81 mg PO DAILY [facility] Last Admin: 01/03/17 10:27 Dose: 81 mg Atorvastatin Calcium (Lipitor) 80 mg PO HS [facility] Last Admin: 01/02/17 21:47 Dose: 80 mg Carvedilol (Coreg) 25 mg PO Q12 [facility] Last Admin: 01/03/17 10:27 Dose: 25 mg Clonidine HCl (Catapres-Tts2 0.2 Mg/24 Hr) 1 patch TD Q7D [facility] Last Admin: 01/02/17 18:01 Dose: Not Given Enoxaparin Sodium (Lovenox) 30 mg SC DAILY [facility] PRN Reason: Protocol Last Admin: 01/03/17 10:43 Dose: 30 mg Furosemide (Lasix) 40 mg PO Q12 [facility] Last Admin: 01/03/17 10:27 Dose: 40 mg Gabapentin (Neurontin) 300 mg PO DAILY [facility] Last Admin: 01/03/17 10:43 Dose: 300 mg Insulin Detemir (Levemir) 24 units SC HS [facility] Last Admin: 01/02/17 22:54 Dose: 24 units Insulin Human Regular (Humulin R) 0 units SC ACCU-CHECK [facility] PRN Reason: Protocol Last Admin: 01/03/17 13:02 Dose: 4 units Losartan Potassium (Cozaar) 25 mg PO DAILY [facility] Last Admin: 01/03/17 10:28 Dose: 25 mg Metoclopramide HCl (Reglan) 10 mg PO TIDAC PRN PRN Reason: Nausea/Vomiting Multivitamins/Minerals (Therapeutic-M Tab) 1 tab PO DAILY [facility] Last Admin: 01/03/17 10:44 Dose: 1 tab Pantoprazole Sodium (Protonix Inj) 40 mg IVP DAILY [facility] Last Admin: 01/03/17 10:44 Dose: 40 mg Pyridoxine HCl (Vitamin B6 50 Mg Tab) 50 mg PO DAILY [facility] Last Admin: 01/03/17 10:45 Dose: 50 mg Zolpidem Tartrate (Ambien) 5 mg PO HS [facility] Last Admin: 01/02/17 22:53 Dose: 5 mg - Labs Labs: 01/03/17 06:00 PT 11.5 Seconds (9.8-13.1) 01/01/17 11:30 INR 1.1 (0.9-1.2) 01/01/17 11:30 APTT 29.4 Seconds (25.6-37.1) 01/01/17 11:30
[2017-01-03] MEDS: Insulin Detemir 100 Units/ml Inj SC SCH (21:33)
--- NOTE | 2017-01-03 21:53 | CP.PCM.PN ---
Subjective - Date & Time of Evaluation Date of Evaluation: 01/03/17 Time of Evaluation: 16:45 - Subjective Subjective: no cp or sob today Objective - Vital Signs/Intake and Output Vital Signs (last 24 hours): Temp Pulse Resp BP Pulse Ox 98.8 F 83 20 142/87 98 01/03/17 18:58 01/03/17 21:32 01/03/17 18:58 01/03/17 21:32 01/03/17 18:58 Intake and Output: 01/03/17 01/04/17 18:59 06:59 Intake Total 1500 Output Total 2000 Balance -500 - Medications Medications: Current Medications Acetaminophen (Tylenol 325mg Tab) 650 mg PO Q4 PRN PRN Reason: Headache Last Admin: 01/02/17 17:33 Dose: 650 mg Amlodipine Besylate (Norvasc) 10 mg PO DAILY [facility] Last Admin: 01/03/17 13:01 Dose: 10 mg Aspirin (Ecotrin) 81 mg PO DAILY [facility] Last Admin: 01/03/17 10:27 Dose: 81 mg Atorvastatin Calcium (Lipitor) 80 mg PO HS [facility] Last Admin: 01/03/17 21:32 Dose: 80 mg Carvedilol (Coreg) 25 mg PO Q12 [facility] Last Admin: 01/03/17 21:32 Dose: 25 mg Clonidine HCl (Catapres) 0.2 mg PO BID [facility] Enoxaparin Sodium (Lovenox) 30 mg SC DAILY [facility] PRN Reason: Protocol Last Admin: 01/03/17 10:43 Dose: 30 mg Furosemide (Lasix) 40 mg PO Q12 [facility] Last Admin: 01/03/17 21:32 Dose: 40 mg Gabapentin (Neurontin) 300 mg PO DAILY [facility] Last Admin: 01/03/17 10:43 Dose: 300 mg Hydralazine HCl (Apresoline) 100 mg PO Q12 [facility] Insulin Detemir (Levemir) 24 units SC HS [facility] Last Admin: 01/03/17 21:33 Dose: 24 units Insulin Human Regular (Humulin R) 0 units SC ACCU-CHECK [facility] PRN Reason: Protocol Last Admin: 01/03/17 17:15 Dose: 4 units Losartan Potassium (Cozaar) 25 mg PO DAILY [facility] Last Admin: 01/03/17 10:28 Dose: 25 mg Metoclopramide HCl (Reglan) 10 mg PO TIDAC PRN PRN Reason: Nausea/Vomiting Multivitamins/Minerals (Therapeutic-M Tab) 1 tab PO DAILY [facility] Last Admin: 01/03/17 10:44 Dose: 1 tab Pantoprazole Sodium (Protonix Inj) 40 mg IVP DAILY [facility] Last Admin: 01/03/17 10:44 Dose: 40 mg Pyridoxine HCl (Vitamin B6 50 Mg Tab) 50 mg PO DAILY [facility] Last Admin: 01/03/17 10:45 Dose: 50 mg Zolpidem Tartrate (Ambien) 5 mg PO HS [facility] Last Admin: 01/03/17 21:34 Dose: 5 mg - Labs Labs: 01/03/17 06:00 PT 11.5 Seconds (9.8-13.1) 01/01/17 11:30 INR 1.1 (0.9-1.2) 01/01/17 11:30 APTT 29.4 Seconds (25.6-37.1) 01/01/17 11:30 - Constitutional Appears: Well - Head Exam Head Exam: ATRAUMATIC, NORMAL INSPECTION, NORMOCEPHALIC - Eye Exam Eye Exam: EOMI, Normal appearance, PERRL. absent: Conjunctival injection, Nystagmus, Periorbital swelling, Periorbital tenderness, Scleral icterus Pupil Exam: NORMAL ACCOMODATION, PERRL - ENT Exam ENT Exam: Mucous Membranes Moist, Normal Exam. absent: Mucous Membranes Dry, Normal External Ear Exam, Normal Oropharynx, TM's Normal Bilaterally - Neck Exam Neck Exam: Full ROM, Normal Inspection. absent: Lymphadenopathy, Meningismus, Tenderness, Thyromegaly - Respiratory Exam Respiratory Exam: Clear to Ausculation Bilateral, NORMAL BREATHING PATTERN. absent: Accessory Muscle Use, Chest Wall Tenderness, Decreased Breath Sounds, Prolonged Expiratory Phase, Rales, Rhonchi, Wheezes, Respiratory Distress, Stridor - Cardiovascular Exam Cardiovascular Exam: REGULAR RHYTHM, +S1, +S2, Murmur. absent: Bradycardia, Tachycardia, Clicks, Diastolic murmur, Gallop, Irregular Rhythm, JVD, RRR, Rubs , +S4 - GI/Abdominal Exam GI & Abdominal Exam: Soft, Normal Bowel Sounds - Rectal Exam Rectal Exam: Deferred - Extremities Exam Extremities Exam: Full ROM, Normal Capillary Refill, Normal Inspection, Pedal Edema. absent: Calf Tenderness, Joint Swelling, Tenderness - Back Exam Back Exam: NORMAL INSPECTION. absent: CVA tenderness (L), CVA tenderness (R), Full ROM, muscle spasm, paraspinal tenderness, rash noted, tenderness, vertebral tenderness - Neurological Exam Neurological Exam: Alert, Awake, CN II-XII Intact, Normal Gait, Oriented x3. absent: Abnormal Gait, Altered, Motor Sensory Deficit, Reflexes Normal - Psychiatric Exam Psychiatric exam: Normal Affect, Normal Mood. absent: Agitated, Anxious, Depressed, Flat Affect, Homicidal Ideation, Manic, Suicidal Ideation - Skin Skin Exam: Dry, Intact, Normal Color, Warm. absent: Abrasion, Cyanosis, Diaphoretic, Erythema, Mottled, Pallor, Pallor, Petechiae, Rash, Urticaria, Vesicles Assessment and Plan (1) Dyslipidemia Status: Acute (2) Acute on chronic renal failure Status: Acute (3) Chest pain Status: Acute (4) Abdominal pain Status: Acute (5) Diabetes mellitus, insulin dependent (IDDM), uncontrolled Status: Acute (6) Hypertension Status: Chronic - Assessment and Plan (Free Text) Plan: pts cp symptoms are atypical. will hold off on stress testing. Pt's cr elevated, thus cath would be high risk. Would only pursue st and cath if pts symptoms are typical of cad. bp remains elevated. will change to hydralazine 100mg q12 and clonidine 0.2mg po bid. 60 min total care time.
--- NOTE | 2017-01-04 02:11 | PN ---
FOLLOWUP RENAL CONSULTATION LOCATION: Room #406, bed #2. REQUESTING PHYSICIAN: Zac Gore MD REASON FOR FOLLOWUP: Chronic CKD IV, proteinuria and uncontrolled hypertension. HISTORY OF PRESENT ILLNESS: Mr. Troncoso is 56 years old middle-aged, obese, male with the past medical history significant for longstanding hypertension, diabetes, secondary hyperparathyroidism, CKD IV, diabetic retinopathy status post laser treatment for the left eye and gastroparesis, diabetic was admitted with nausea, vomiting and unable to hold any medications and with chest pain and uncontrolled hypertension. The patient is feeling better today not in acute distress, no chest pain, no palpitation, no fever, no cough, no abdominal pain, no nausea, no vomiting or diarrhea. PHYSICAL EXAMINATION: VITAL SIGNS: As follows: Blood pressure 163/95, pulse 87, respirations 18, temperature 99.1, saturation 98%, height 5 feet 9 inches, and weight is 216 pounds. GENERAL: Mr. Troncoso is a 56 years old male, moderately built, moderately nourished, not in acute distress. HEENT: Pupils are normal and reactive to light and accommodation. Conjunctivae pink. Sclerae anicteric. Tongue is moist. Trachea is midline. LUNGS: Symmetry on both sides. Bilateral breath sounds present and clear on auscultation. CARDIOVASCULAR: [place] at the fifth intercostal space, midclavicular line. S1 and S2 audible. No murmur or gallop. ABDOMEN: Normal in appearance, soft and tympanic. No guarding. No rigidity. No hepatosplenomegaly. HAND [employer]ER [employer]IPPER: The patient is alert, awake and oriented x3. Nonfocal neuro examination. Cranial nerves II through XII grossly intact. Sensory and motor system is within normal limits. EXTREMITIES: No cyanosis. No clubbing. The patient has 1+ edema in both lower extremities. MEDICATIONS: His current medications include as follows: Ambien 5 mg at bedtime, hydralazine 100 mg p.o. q. 12 hours, clonidine 0.2 mg p.o. b.i.d., Coreg 25 mg p.o. q. 12 hours, Losartan 25 mg p.o. daily, Ecotrin 81 mg daily, regular insulin for coverage, Lasix 40 mg p.o. q. 12 hours, Levemir 24 units subcutaneous at bedtime, Lipitor 80 mg p.o. at bedtime, Lovenox 30 mg subcutaneous daily, gabapentin 300 mg p.o. daily, amlodipine 10 mg daily, Protonix 40 mg daily, Reglan 10 mg p.o. t.i.d., multivitamin 1 tablet daily, acetaminophen 650 mg p.o. q. 4 hours p.r.n. and pyridoxine 50 mg p.o. daily. LABORATORY DATA: Include as follows: As of 01/03/2017; sodium 135, potassium 4.6, chloride 101, CO2 of 28, BUN 35, creatinine 4.1, glucose 231, calcium 9.2, phosphorus 3.7, C3 is 145 and C4 is 48. Hepatitis B surface antigen is negative. Surface antibody is negative. Hepatitis C antibody is negative. In summary, Mr. Troncoso is a 56 years old middle-aged, obese, male with history of longstanding hypertension, diabetes, diabetic retinopathy, proteinuria, diabetic gastroparesis and psych disorder, now was admitted with nausea, vomiting and chest discomfort and unable to hold any blood pressure medications and high blood pressure and proteinuria, increased BUN and creatinine. 1. Chronic kidney disease stage IV, mostly likely secondary to diabetic nephropathy. Doubt underlying chronic GN, but cannot be ruled out. 2. Hypertension. Blood pressure is improving. Continue his current medications hydralazine, clonidine, Norvasc, Coreg and Cozaar and follow BMP in a.m. Monitor for the potassium. 3. Uncontrolled diabetes. Check hemoglobin A1c. 4. Hyperlipidemia. Continue Lipitor 80 mg p.o. at bedtime. Check 24-hour urine for protein, creatinine and creatinine clearance. We will follow with you. Thank you for allowing me to participate in your patient's care. Discussed with nurse practitioner in rounds regarding the patient's medications and the plan. Savanna Cleveland MD
[2017-01-04 08:34] VITALS: BP 144/80; PULSE 79; RESP 20; TEMP 98.1; O2SAT 99
--- NOTE | 2017-01-04 09:04 | CP.PCM.DIS ---
Provider - Provider Date of Admission: 01/02/17 10:03 Attending physician: Zac Gore MD Time Spent in preparation of Discharge (in minutes): 35 Diagnosis - Discharge Diagnosis (1) Acute on chronic renal failure Status: Acute (2) Chest pain Status: Acute (3) Dyslipidemia Status: Acute (4) Diabetes mellitus, insulin dependent (IDDM), uncontrolled Status: Acute (5) Gastroparesis due to DM Status: Acute (6) Hyperglycemia Status: Acute (7) Intractable vomiting Status: Acute (8) Renal insufficiency Status: Acute (9) Uncontrolled diabetes mellitus with chronic kidney disease, without long- term current use of insulin Status: Acute (10) Anemia Status: Chronic (11) Hypertension Status: Chronic Hospital Course - Lab Results Lab Results: Most Recent Lab Values WBC 7.5 K/uL (4.8-10.8) 01/02/17 08:30 RBC 3.70 Mil/uL (4.40-5.90) L 01/02/17 08:30 Hgb 9.2 g/dL (12.0-18.0) L 01/02/17 08:30 Hct 28.2 % (35.0-51.0) L 01/02/17 08:30 MCV 76.3 fl (80.0-94.0) L 01/02/17 08:30 MCH 24.8 pg (27.0-31.0) L 01/02/17 08:30 MCHC 32.5 g/dL (33.0-37.0) L 01/02/17 08:30 RDW 16.0 % (11.5-14.5) H 01/02/17 08:30 Plt Count 279 K/uL (130-400) 01/02/17 08:30 MPV 7.6 fl (7.2-11.7) 01/01/17 11:30 Neut % (Auto) 76.1 % (50.0-75.0) H 01/01/17 11:30 Lymph % (Auto) 12.6 % (20.0-40.0) L 01/01/17 11:30 [place] % (Auto) 7.3 % (0.0-10.0) 01/01/17 11:30 Eos % (Auto) 2.2 % (0.0-4.0) 01/01/17 11:30 Baso % (Auto) 1.8 % (0.0-2.0) 01/01/17 11:30 Neut # 5.6 K/uL (1.8-7.0) 01/01/17 11:30 Lymph # 0.9 K/uL (1.0-4.3) L 01/01/17 11:30 [place] # 0.5 K/uL (0.0-0.8) 01/01/17 11:30 Eos # 0.2 K/uL (0.0-0.7) 01/01/17 11:30 Baso # 0.1 K/uL (0.0-0.2) 01/01/17 11:30 PT 11.5 Seconds (9.8-13.1) 01/01/17 11:30 INR 1.1 (0.9-1.2) 01/01/17 11:30 APTT 29.4 Seconds (25.6-37.1) 01/01/17 11:30 Sodium 135 mmol/l (132-148) 01/03/17 06:00 Potassium 4.6 MMOL/L (3.6-5.0) 01/03/17 06:00 Chloride 101 mmol/L (98-107) 01/03/17 06:00 Carbon Dioxide 28 mmol/L (22-30) 01/03/17 06:00 Anion Gap 11 (10-20) 01/03/17 06:00 BUN 35 mg/dl (9-20) H 01/03/17 06:00 Creatinine 4.1 mg/dL (0.8-1.5) H 01/03/17 23:15 Est GFR ( Amer) 18 01/03/17 06:00 Est GFR (Non-Af Amer) 15 01/03/17 06:00 POC Glucose (mg/dL) 175 mg/dL (65-110) H 01/04/17 05:16 Random Glucose 231 mg/dL (75-110) H 01/03/17 06:00 Calcium 9.2 mg/dL (8.4-10.2) 01/03/17 06:00 Phosphorus 3.7 mg/dl (2.5-4.5) 01/03/17 06:00 Total Bilirubin 1.1 mg/dl (0.2-1.3) 01/01/17 11:30 AST 50 U/L (17-59) 01/01/17 11:30 ALT 35 U/L (21-72) 01/01/17 11:30 Alkaline Phosphatase 84 U/L (38-126) 01/01/17 11:30 Troponin I 0.0240 ng/mL (0.00-0.120) 01/02/17 08:30 Total Protein 7.8 G/DL (6.3-8.2) 01/01/17 11:30 Total Protein (PEP) 6.0 g/dL (6.1-8.1) L 01/03/17 06:00 Albumin 4.0 g/dL (3.5-5.0) 01/01/17 11:30 Globulin 3.8 gm/dL (2.2-3.9) 01/01/17 11:30 Albumin/Globulin Ratio 1.1 (1.0-2.1) 01/01/17 11:30 Triglycerides 341 mg/DL (0-149) H 01/02/17 08:30 Cholesterol 356 mg/dL (0-199) H 01/02/17 08:30 LDL Cholesterol Direct 139 mg/dL (0-129) H 01/02/17 08:30 HDL Cholesterol 48 MG/DL (30-70) 01/02/17 08:30 Urine Color Straw (YELLOW) 01/01/17 12:20 Urine Clarity Clear (Clear) 01/01/17 12:20 Urine pH 7.0 (5.0-8.0) 01/01/17 12:20 Ur Specific [place] 1.008 (1.003-1.030) 01/01/17 12:20 Urine Protein >=500 mg/dL (NEGATIVE) 01/01/17 12:20 Urine Glucose (UA) >=500 mg/dL (Normal) 01/01/17 12:20 Urine Ketones Negative mg/dL (NEGATIVE) 01/01/17 12:20 Urine Blood Negative (NEGATIVE) 01/01/17 12:20 Urine Nitrate Negative (NEGATIVE) 01/01/17 12:20 Urine Bilirubin Negative (NEGATIVE) 01/01/17 12:20 Urine Urobilinogen 0.2-1.0 mg/dL (0.2-1.0) 01/01/17 12:20 Ur Leukocyte Esterase Neg [place]/uL (Negative) 01/01/17 12:20 Urine RBC (Auto) 2 /hpf (0-3) 01/01/17 12:20 Urine Collection Time 24 HRS 01/03/17 23:15 Urine Total Volume 2800 mL 01/03/17 23:15 Creatinine Clearance 20.0 mL/min (107-139) L 01/03/17 23:15 Ur Protein 24 Hr Calc 5208.0 mg/24hr (42-225) H 01/03/17 23:15 Complement C3 145.0 mg/dL (88.0-165.0) 01/03/17 06:00 Complement C4 48.0 mg/dL (14.0-44.0) H 01/03/17 06:00 Hep Bs Antigen Negative (NEGATIVE) 01/03/17 06:00 Hep Bs Antibody Negative (NEGATIVE) 01/03/17 06:00 Hepatitis C Antibody Negative (NEGATIVE) 01/03/17 06:00 - Hospital Course Hospital Course: CLINICALLY IMPROVED CHEST PAIN FREE LABS REVIEWED--STABLE Discharge Exam - Head Exam Head Exam: ATRAUMATIC, NORMAL INSPECTION, NORMOCEPHALIC - Eye Exam Eye Exam: EOMI, Normal appearance, PERRL Pupil Exam: NORMAL ACCOMODATION, PERRL - GI/Abdominal Exam GI & Abdominal Exam: Normal Bowel Sounds - Rectal Exam Rectal Exam: NORMAL INSPECTION - Neurological Exam Neurological exam: Alert, CN II-XII Intact, Normal Gait, Oriented x3, Reflexes Normal - Psychiatric Exam Psychiatric exam: Normal Affect, Normal Mood - Skin Skin Exam: Dry, Intact, Normal Color, Warm Discharge Plan - Follow Up Plan Condition: GOOD Disposition: HOME/ ROUTINE Patient education suggested?: Yes Additional Instructions: DISCHARGE TODAY FOLLOW UP WITH DR ESQUIVEL AND CHIEF DEPUTY [facility]ER[facility]
[2017-01-04] MEDS: Multivitamin With Minerals Tab PO SCH (09:20)
[2017-01-04] MEDS: Insulin Regular 100 units/ml SC SCH (09:21)
[2017-01-04] MEDS: Enoxaparin 30 mg Syringe SC SCH (09:21)
[2017-01-04 20:56] LABS: BETA 1 GLOBULIN 0.4 g/dL (0.4-0.6); BETA 2 GLOBULIN 0.4 g/dL (0.2-0.5)
== END 2017-01-04 11:00 | disposition home or self-care (01) | DRG 316 ==
LOC: H.ER 10:10 → H.ERHOLD 18:26 → H.TEL 21:21 → OBSVTOIN 01-02 10:03
PROVIDERS: ADMIT Internal Medicine Pulmonary Disease; ATTEND Internal Medicine Pulmonary Disease
DX: N17.9 Acute kidney failure, unspecified (principal); E10.21 Type 1 diabetes mellitus with diabetic nephropathy; K31.84 Gastroparesis; E10.43 Type 1 diabetes mellitus with diabetic autonomic (poly)neuropathy; E10.22 Type 1 diabetes mellitus with diabetic chronic kidney disease; E10.319 Type 1 diabetes mellitus with unspecified diabetic retinopathy without macular edema; D64.9 Anemia, unspecified; E78.00 Pure hypercholesterolemia, unspecified; E78.5 Hyperlipidemia, unspecified; G47.30 Sleep apnea, unspecified; F31.9 Bipolar disorder, unspecified; I12.9 Hypertensive chronic kidney disease with stage 1 through stage 4 chronic kidney disease, or unspecified chronic kidney disease; E10.65 Type 1 diabetes mellitus with hyperglycemia; N18.4 Chronic kidney disease, stage 4 (severe); N25.81 Secondary hyperparathyroidism of renal origin; Z86.73 Personal history of transient ischemic attack (TIA), and cerebral infarction without residual deficits; E66.9 Obesity, unspecified; Z68.31 Body mass index [BMI] 31.0-31.9, adult; R07.89 Other chest pain